=== PATIENT | male | born 1975 | race Caucasian/White ===

== ENCOUNTER 2018-08-11 14:56 | Emergency (ER) | payer SELFPAY ==
[~2018-08-11] VITALS: Ht 170.2 cm; Wt 121.1 kg
[2018-08-11 15:03] VITALS: Ht 170.2 cm; Wt 121.1 kg
[2018-08-11 15:41] LABS: BASOPHIL % 0.6 % (0-2); PLATELET COUNT 297 x10^3mcL (130-400); RED CELL DISTRIBUTION WIDTH 13.4 % (11.5-14.5)
[2018-08-11 15:45] LABS: CALCIUM 8.4 mg/dL (8.5-10.1); CARBON DIOXIDE 30.5 mmol/L (21-32); CHLORIDE SERUM 103 mmol/L (98-107); CREATININE SERUM 0.9 mg/dL (0.7-1.3); GFR1 > 60 mL/min; GLUCOSE SERUM 116 mg/dL (74-106); POTASSIUM SERUM 3.3 mmol/L (3.5-5.1); SODIUM SERUM 141 mmol/L (136-145)
[2018-08-11 16:17] VITALS: BP 125/64
== END 2018-08-11 16:17 | disposition home or self-care (01) ==
LOC: ED 14:56
PROVIDERS: Emergency Medicine
DX: E87.6 Hypokalemia (principal); R51 Headache; M79.89 Other specified soft tissue disorders
CPT/HCPCS: 36415; J1885; J2765; Q0163

== ENCOUNTER 2020-09-19 08:00 | Emergency (ER) | payer MEDICAID ==
[~2020-09-19] VITALS: Ht 170.2 cm; Wt 129.3 kg
[~2020-09-19 08:00] MED LIST: DECADRON6 MG PO
[2020-09-19 08:12] VITALS: Ht 170.2 cm; Wt 129.3 kg
[2020-09-19 11:16] VITALS: BP 132/72
== END 2020-09-19 11:16 | disposition home or self-care (01) ==
LOC: ED 08:00
DX: M54.41 Lumbago with sciatica, right side (principal); N45.1 Epididymitis; Z90.49 Acquired absence of other specified parts of digestive tract
CPT/HCPCS: J1885